=== PATIENT | female | born 1985 | race Caucasian/White ===

== ENCOUNTER 2018-12-17 05:55 | Inpatient (IN) | payer OTHER ==
[~2018-12-17] VITALS: Ht 162.6 cm; Wt 86.9 kg
[~2018-12-17 05:55] MED LIST: PREN1TAB80 PO
[2018-12-17] MEDS ORDERED: METOCLOPRAMIDE HCL 5 MG/ML 2 ML VIAL IVP ONE (06:00)
[2018-12-17] MEDS ORDERED: RINGERS SOLUTION,LACTATED 1,000 ML IV ONE (06:00)
[2018-12-17] MEDS ORDERED: CITRIC ACID/SODIUM CITRATE 30 ML SOLUTION UDCUP PO ONE (06:00)
[2018-12-17 06:42] VITALS: BP 131/63
[2018-12-17] MEDS ORDERED: LIDOCAINE/PF 1% 30 ML VIAL ONE (06:42)
[2018-12-17] MEDS ORDERED: LIDOCAINE/PF 1% 30 ML VIAL INJ PRN (06:45)
[2018-12-17 06:53] LABS: BASOPHILS % (AUTO) 0.4 % (0.0-2.0); EOSINOPHILS % (AUTO) 0.7 % (1.0-6.0); HEMATOCRIT 38.1 % (36-46); HEMOGLOBIN 12.9 g/dL (12.0-16.0); LYMPHOCYTES # (AUTO) 1.7 K/uL (1.0-4.8); MEAN CORPUSCULAR HEMOGLOBIN 32.4 pg (26.0-34.0); MEAN CORPUSCULAR HGB CONC 33.8 G/dL (31.0-37.0); MEAN CORPUSCULAR VOLUME 96 fL (80-100); MONOCYTES # (AUTO) 0.7 K/uL (0.1-1.0); MONOCYTES % (AUTO) 8.3 % (2.0-9.0); NEUTROPHILS % (AUTO) 70.6 % (40.0-70.0); PLATELET COUNT (AUTO) 236 K/uL (150-450); RED BLOOD CELL COUNT(AUTO) 3.98 MIL/uL (4.00-5.20); RED CELL DISTRIBUTION WIDTH 13.7 % (11.5-14.5)
[2018-12-17] MEDS ORDERED: NALBUPHINE HCL 10 MG/ML VIAL IVP PRN ×2 (07:00)
[2018-12-17] MEDS ORDERED: NALOXONE HCL 0.4 MG/ML VIAL IVP PRN (07:00)
[2018-12-17] MEDS ORDERED: FentaNYL CITRATE-PF 100 MCG/2 ML VIAL IVP PRN (07:00)
[2018-12-17] MEDS ORDERED: ONDANSETRON HCL 4 MG/2 ML VIAL IVP PRN (07:00)
[2018-12-17] MEDS ORDERED: MORPHINE SULFATE 10 MG/ML SYRINGE IVP PRN (07:00)
[2018-12-17] MEDS ORDERED: DiphenhydrAMINE HCL 50 MG/ML VIAL IVP PRN (07:00)
[2018-12-17] MEDS ORDERED: BUPIVACAINE HCL/DEX-WATER/PF 0.75% 2 ML AMP ONE (07:21)
[2018-12-17] MEDS ORDERED: OXYGEN THERAPY IH SCH (08:00)
[2018-12-17] MEDS ORDERED: LANOLIN 7 GM OINTMENT TP PRN (08:45)
[2018-12-17] MEDS ORDERED: ACETAMINOPHEN/CODEINE 300-30 MG TABLET PO PRN ×2 (08:45)
[2018-12-17] MEDS ORDERED: DEXTROSE 5%-0.45% SODIUM CHL 1,000 ML IV ONE (09:25)
[2018-12-17] MEDS: DEXTROSE 5%-0.45% SODIUM CHL 1,000 ML IV SCH ×4 (09:27→20:58)
[2018-12-17] MEDS ORDERED: OXYTOCIN 10 UNITS/ML VIAL IM ONE (12:00)
[2018-12-17] MEDS ORDERED: FentaNYL CITRATE-PF 100 MCG/2 ML VIAL IVP ONE (12:00)
[2018-12-17] MEDS ORDERED: EPHEDrine SULFATE 50 MG/ML VIAL IM ONE (12:00)
[2018-12-17] MEDS: KETOROLAC TROMETHAMINE 30 MG/ML VIAL IVP SCH ×2 (14:45→20:59)
[2018-12-17] MEDS: ACETAMINOPHEN 1000 MG/ISO-OSM 100 ML IV SCH ×2 (14:51→22:56)
[2018-12-17] MEDS: MAGNESIUM HYDROXIDE SUSPENSION 30 ML UDCUP PO SCH ×2 (20:59→21:00)
[2018-12-18] MEDS: IBUPROFEN 800 MG TABLET PO SCH ×4 (01:57→21:55)
[2018-12-19] MEDS: IBUPROFEN 800 MG TABLET PO SCH ×2 (03:52→11:59)
== END 2018-12-19 16:00 | disposition home or self-care (01) | DRG 788 ==
LOC: 4S 05:55 → PREOBSVTOIN 12-26 06:01
PROVIDERS: ADMIT Obstetrics & Gynecology; ATTEND Obstetrics & Gynecology
PROC: 10D00Z1 Extraction of Products of Conception, Low, Open Approach (ICD-10-PCS; principal; 2018-12-17)
DX: O34.211 Maternal care for low transverse scar from previous cesarean delivery (principal); Z3A.39 39 weeks gestation of pregnancy; Z37.0 Single live birth
CPT/HCPCS: 85461; 86850; 86870; 86900; 86901; 87081; J0131; J1885; J2590; J2765; J3010; J3490; J7120